=== PATIENT | male | born 1945 | race Caucasian/White ===

== ENCOUNTER → 2023-03-22 06:30 | Outpatient (REF) | payer MEDICARE, OTHER, SELFPAY ==
[2023-03-22 10:32] LABS: Blood Urea Nitrogen 28 mg/dl (9-20); Calcium 9.2 mg/dl (8.4-10.2); Carbon Dioxide 28 mmol/L (22-30); Chloride 103 mmol/L (98-107); Glucose 158 mg/dl (70-99); Potassium 4.1 mmol/L (3.5-5.1); Sodium 138 mmol/L (135-145); eGFR > 60.00
== END ==
LOC: HWLAB 06:30
PROVIDERS: ATTENDING PHYSICIAN Specialist; FAMILY PHYSICIAN Family Medicine
DX: I10 Essential (primary) hypertension (principal); E87.1 Hypo-osmolality and hyponatremia; N17.9 Acute kidney failure, unspecified
CPT/HCPCS: 36415; 80048

== ENCOUNTER → 2023-09-12 07:17 | Outpatient (REF) | payer MEDICARE, OTHER, SELFPAY ==
[2023-09-12 10:41] LABS: ALT (SGPT) 16 U/L (0-50); AST (SGOT) 26 U/L (17-59); Albumin 4.7 g/dl (3.5-5.0); Alkaline Phosphatase 69 U/L (38-126); Blood Urea Nitrogen 39 mg/dl (9-20); Calcium 10.1 mg/dl (8.4-10.2); Carbon Dioxide 28 mmol/L (22-30); Chloride 102 mmol/L (98-107); Glucose 139 mg/dl (70-99); HDL Cholesterol 51 mg/dl; LDL Cholesterol, Calculated 83 mg/dl; Potassium 4.8 mmol/L (3.5-5.1); Sodium 138 mmol/L (135-145); Total Bilirubin 0.6 mg/dl (0.2-1.3); Total Cholesterol 173 mg/dl (50-199); Total Protein 6.8 g/dl (6.3-8.2); Triglyceride 198 mg/dl (10-149); Very Low Density Lipoprotein 39 mg/dl (0-30); eGFR > 60.00
[2023-09-12 11:12] LABS: PSA, Total - Diagnostic < 0.06 ng/ml (0.0-4.0)
[2023-09-12 12:38] LABS: Glycohemoglobin (HgbA1c) 6.7 % (4.0-5.6)
== END ==
LOC: HWLAB 07:17
PROVIDERS: ATTENDING PHYSICIAN Family Medicine
DX: E11.9 Type 2 diabetes mellitus without complications (principal); E78.5 Hyperlipidemia, unspecified; C61 Malignant neoplasm of prostate
CPT/HCPCS: 36415; 80053; 80061; 83036; 84153

== ENCOUNTER → 2024-03-12 10:06 | Outpatient (REF) | payer MEDICARE, OTHER, SELFPAY ==
[2024-03-12 16:48] LABS: PSA, Total - Diagnostic < 0.06 ng/ml (0.0-4.0)
== END ==
LOC: HWLAB 10:06
PROVIDERS: ATTENDING PHYSICIAN Specialist; FAMILY PHYSICIAN Internal Medicine
DX: C61 Malignant neoplasm of prostate (principal)
CPT/HCPCS: 36415; 84153

== ENCOUNTER 2024-06-04 06:21 | Day surgery (SDC) | payer MEDICARE, OTHER, SELFPAY ==
[2024-06-04 11:47] LABS: Glucose - Point of Care 152 mg/dl (70-99)
== END 2024-06-04 13:18 | disposition home or self-care (01) ==
LOC: GI 06:21
PROVIDERS: ATTENDING PHYSICIAN Internal Medicine Gastroenterology
DX: Z12.11 Encounter for screening for malignant neoplasm of colon (principal); K57.30 Diverticulosis of large intestine without perforation or abscess without bleeding; K64.8 Other hemorrhoids; D12.2 Benign neoplasm of ascending colon; D12.3 Benign neoplasm of transverse colon; Z86.0100 Personal history of colon polyps, unspecified
CPT/HCPCS: 45385; 88305; 82962

== ENCOUNTER → 2024-09-30 07:43 | Outpatient (REF) | payer MEDICARE, OTHER, SELFPAY ==
[2024-09-30 10:03] LABS: Hematocrit 35.7 % (39.0-52.0); Hemoglobin 11.9 g/dL (13.0-18.0); Mean Corp Hgb Conc. 33.3 g/dL (33.0-37.0); Mean Corpuscular Volume 89.7 fL (80.0-94.0); Nucleated Red Blood Cells % 0 % (-); Platelet Count 198 10^3/uL (130-400); Red Cell Dist. Width 13.7 % (11.5-14.5)
[2024-09-30 10:22] LABS: Microalb - Urine Creatinine 189.000 mg/dl
[2024-09-30 10:24] LABS: Microalbumin, Random Urine 1.4 mg/dl (0.6-1.7)
[2024-09-30 10:48] LABS: PSA, Total - Diagnostic < 0.06 ng/ml (0.0-4.0); TSH 2.71 uIU/ml (0.47-4.68)
[2024-09-30 11:50] LABS: ALT (SGPT) 14 U/L (0-50); AST (SGOT) 21 U/L (17-59); Albumin 4.6 g/dl (3.5-5.0); Alkaline Phosphatase 58 U/L (38-126); Blood Urea Nitrogen 30 mg/dl (9-20); Calcium 9.5 mg/dl (8.4-10.2); Carbon Dioxide 26 mmol/L (22-30); Chloride 104 mmol/L (98-107); Glucose 134 mg/dl (70-99); HDL Cholesterol 48 mg/dl; LDL Cholesterol, Calculated 75 mg/dl; Potassium 4.0 mmol/L (3.5-5.1); Sodium 139 mmol/L (135-145); Total Protein 6.9 g/dl (6.3-8.2); Very Low Density Lipoprotein 44 mg/dl (0-30); eGFR > 60.00
[2024-09-30 12:12] LABS: Glycohemoglobin (HgbA1c) 7.0 % (4.0-5.6)
== END ==
LOC: HWLAB 07:43
PROVIDERS: ATTENDING PHYSICIAN Specialist; FAMILY PHYSICIAN Internal Medicine
DX: E11.9 Type 2 diabetes mellitus without complications (principal); C61 Malignant neoplasm of prostate; I10 Essential (primary) hypertension; E78.2 Mixed hyperlipidemia; J93.83 Other pneumothorax; Z76.89 Persons encountering health services in other specified circumstances
CPT/HCPCS: 36415; 80053; 80061; 82043; 82570; 83036; 84153; 84443; 85025

== ENCOUNTER 2024-12-17 13:12 | Emergency (ER) | payer MEDICARE, OTHER, SELFPAY ==
[2024-12-17 13:18] VITALS: BP 158/91
[2024-12-17 13:19] VITALS: BP 158/91
[2024-12-17 13:26] VITALS: BMI 27.0
[2024-12-17 13:35] LABS: Hematocrit 36.2 % (39.0-52.0); Hemoglobin 12.3 g/dL (13.0-18.0); Mean Corp Hgb Conc. 34.0 g/dL (33.0-37.0); Mean Corpuscular Volume 88.5 fL (80.0-94.0); Nucleated Red Blood Cells % 0 % (-); Platelet Count 227 10^3/uL (130-400); Red Cell Dist. Width 13.4 % (11.5-14.5)
[2024-12-17 13:48] LABS: ALT (SGPT) 21 U/L (0-50); AST (SGOT) 26 U/L (17-59); Albumin 4.8 g/dl (3.5-5.0); Alkaline Phosphatase 75 U/L (38-126); Blood Urea Nitrogen 29 mg/dl (9-20); Calcium 9.7 mg/dl (8.4-10.2); Carbon Dioxide 28 mmol/L (22-30); Chloride 102 mmol/L (98-107); Estimated Creatinine Clearance 45 ml/min; Glucose 198 mg/dl (70-99); Potassium 4.2 mmol/L (3.5-5.1); Sodium 137 mmol/L (135-145); Total Protein 7.3 g/dl (6.3-8.2); eGFR 55.53
[2024-12-17 14:00] LABS: Troponin I < 0.012 ng/ml
[2024-12-17 15:00] VITALS: BP 148/68
[2024-12-17 15:25] VITALS: BP 151/95
--- NOTE | 2024-12-17 15:54 | ED.GENMED ---
History of Present Illness
General
Chief Complaint: Dizziness
Time Seen by Provider: 12/17/24 13:28
History of Present Illness
History of Present Illness:
79-year-old male with history of hypertension, hyperlipidemia, and kha-btdzobp-dejshxuyd diabetes presents to the emergency department for evaluation of a bout of severe dizziness with resultant vomiting that occurred today. He has some amnesia to
the events and is possible that he may have fallen. The event occurred while he was working outdoors. Currently feels well with no complaints. Denies headache, vision changes, chest pain, shortness of breath, nausea, vomiting, or diarrhea.
Past History
Past History
ED Past Medical History: NIDDM
ED Past Surgical History: None
Social History
Tobacco: Non-smoker
Personal:
Living: with family
Review of Systems
Review of Systems
Allergies reviewed?: Yes
All Other Systems: ROS reviewed and negative except as documented in HPI and ROS
Phy Exam
Physical Exam
Physical Exam:
GEN: Well appearing, NAD, WDWN
HEENT: Oral mucosa moist, no scleral icterus, no nasal congestion
Cardiac: Regular rate and rhythm, no murmurs
Lung: No respiratory distress, no tachypnea
MSK: No gross deformity or injuries
Skin: Good color, no pallor or jaundice, no rashes
Neuro: AO x3; CN II-XII grossly intact. BUE strength 5/5 in all thacker, sensation intact and symmetric. BLE strength 5/5 in all thacker, sensation intact and symmetric
Psych: Calm, cooperative
Course
Orders/Labs/Results
Orders:
Orders
12/17/24 13:27
Electrocardiogram (*1) Urgent
Reason for Study: Chest Pain
EKG- Treatment ONCE
12/17/24 13:28
Complete Blood Count/With Diff Urgent
Comprehensive Metabolic Panel Urgent
Troponin I Urgent
12/17/24 13:41
CT Head W/o Iv Contrast Urgent
Comment:
Reason For Exam: dizzy/vomiting
Abnormal Lab Results
12/17/24
13:28
RBC 4.09 L 10^6/uL
(4.70-6.10)
Hgb 12.3 L g/dL
(13.0-18.0)
Hct 36.2 L %
(39.0-52.0)
MPV 10.6 H fL
(7.4-10.4)
Abs Immat Gran (auto) 0.1 H 10^3/uL
(0-0.05)
Absolute Neuts (auto) 7.8 H 10^3/uL
(1.4-6.5)
Absolute Lymphs (auto) 1.1 L 10^3/uL
(1.2-3.4)
Immature Gran % 1.2 H %
(0-0.5)
Neutrophils % 80.5 H %
(42.2-75.2)
Lymphocytes % 11.2 L %
(20.5-51.1)
BUN 29 H mg/dl
(9-20)
Glucose 198 H mg/dl
(70-99)
12/17/24 13:28
12/17/24 13:28
Vital Signs
Initial and Last Documented VS:
Initial Vital Signs
Pulse Resp BP Pulse Ox
83 18 158/91 100
12/17/24 13:18 12/17/24 13:18 12/17/24 13:18 12/17/24 13:18
Last Documented Vital Signs
Pulse Resp BP Pulse Ox
94 18 155/75 96
12/17/24 16:45 12/17/24 16:45 12/17/24 16:00 12/17/24 16:00
MDM/Problems Addressed
MDM/Problems Addressed:
This was either a syncopal event due to exertion/vasovagal versus a bout of vertigo. 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
Comment
Comment:
EKG independently interpreted by me shows a normal sinus rhythm at a rate of 82 with a first-degree AV block, single PVC identified, no ischemic changes
*Pulse Oximetry
SaO2: 95
Oxygen Mode of Delivery: Room air
Patient hypoxic: no
*Critical Care Note
Total Time (30-74mins, 75-104mins- exclusive of procedures): Not Applicable
ED Attending Note
-
Portions of this chart may have been created with voice recognition software.� Occasional wrong word or��sound alike� substitutions may have occurred due to the inherent limitations of voice recognition software.
Discharge Plan
Departure
Patient Disposition: Home (Routine Discharge)
Date of Disposition: 12/17/24
Time of Disposition: 16:32
Patient with high blood pressure during this ER visit?: No
Discharge Problem:
Syncope
Instructions: Syncope (fainting) (DC)
Prescriptions:
No Action
multivitamin Tablet
1 tab PO DAILY
triamterene-hydrochlorothiazid 37.5-25 mg Capsule
1 cap PO DAILY
losartan 100 mg Tablet
100 mg PO QPM
metformin 500 mg Tablet Extended Release 24 Hr
500 mg PO BID
rosuvastatin 5 mg Tablet
5 mg PO MOWEFR
Januvia 50 mg Tablet
50 mg PO QPM
Lupron Depot (6 Month) 45 mg Syringe Kit
45 mg IM [id number]
Referrals:
Cory Sanchez MD [Family Provider, Internal Medicine]
Activity Restrictions/Additional Instructions:
Begin taking baby aspirin once daily (81mg) for further stroke prevention
Interventions
Interventions:
*Risk Screen - Suicide Last Done: 12/17/24 13:18
*General Assessment Last Done: 12/17/24 13:18
*Neglect/Abuse Screening Last Done: 12/17/24 13:18
*ED COVID-19 Vaccine History Last Done: 12/17/24 15:25
*ED Influenza Vaccine History Last Done: 12/17/24 15:25
*Nursing Disposition Last Done: 12/17/24 17:25
ED- Neurological Assessment Last Done: 12/17/24 13:18
ED- Cardiac Assessment Last Done: 12/17/24 13:18
Discharge Date and Time
Discharge Date/Time: 12/17/24 17:25
Print Language: [place]
[2024-12-17 16:00] VITALS: BP 155/75
== END 2024-12-17 17:25 | disposition home or self-care (01) ==
LOC: EMR 13:12
PROVIDERS: EMERGENCY PHYSICIAN Emergency Medicine; FAMILY PHYSICIAN Internal Medicine
DX: R55 Syncope and collapse (principal); I44.0 Atrioventricular block, first degree; I49.3 Ventricular premature depolarization; E11.9 Type 2 diabetes mellitus without complications; I10 Essential (primary) hypertension; E78.5 Hyperlipidemia, unspecified; Z79.82 Long term (current) use of aspirin; Z79.84 Long term (current) use of oral hypoglycemic drugs; Z86.73 Personal history of transient ischemic attack (TIA), and cerebral infarction without residual deficits
CPT/HCPCS: 99284; 70450; 80053; 84484; 85025; 93005

== ENCOUNTER → 2024-12-22 08:08 | Outpatient (REF) | payer MEDICARE, OTHER, SELFPAY ==
[2024-12-22 11:21] LABS: Hematocrit 37.9 % (39.0-52.0); Hemoglobin 12.7 g/dL (13.0-18.0); Mean Corp Hgb Conc. 33.5 g/dL (33.0-37.0); Mean Corpuscular Volume 89.4 fL (80.0-94.0); Nucleated Red Blood Cells % 0 % (-); Platelet Count 234 10^3/uL (130-400); Red Cell Dist. Width 13.3 % (11.5-14.5); Reticulocyte Count 1.1 % (0.4-2.8)
[2024-12-22 11:33] LABS: Iron 83 ug/dl (49-181)
[2024-12-22 11:42] LABS: Total Iron Binding Capacity 340 ug/dl (261-462)
[2024-12-22 11:45] LABS: Microalb - Urine Creatinine 221.400 mg/dl
[2024-12-22 12:05] LABS: Ferritin 151.0 ng/ml (17.9-464.0)
[2024-12-22 12:11] LABS: Glycohemoglobin (HgbA1c) 7.0 % (4.0-5.9)
[2024-12-22 12:50] LABS: Microalbumin, Random Urine 1.4 mg/dl (0.6-1.7)
== END ==
LOC: HWLAB 08:08
PROVIDERS: ATTENDING PHYSICIAN Internal Medicine
DX: R40.20 Unspecified coma (principal); Z86.73 Personal history of transient ischemic attack (TIA), and cerebral infarction without residual deficits; R42 Dizziness and giddiness; E78.2 Mixed hyperlipidemia; E11.9 Type 2 diabetes mellitus without complications; I10 Essential (primary) hypertension; S16.1XXA Strain of muscle, fascia and tendon at neck level, initial encounter; D64.89 Other specified anemias
CPT/HCPCS: 36415; 82043; 82570; 82728; 83036; 83540; 83550; 85025; 85045

== ENCOUNTER → 2024-12-24 18:10 | Outpatient (REF) | payer MEDICARE, OTHER, SELFPAY | LOC: PAVMRI 18:10 | PROVIDERS: ATTENDING PHYSICIAN Internal Medicine | DX: R40.20 Unspecified coma (principal); Z86.73 Personal history of transient ischemic attack (TIA), and cerebral infarction without residual deficits; R42 Dizziness and giddiness; E78.2 Mixed hyperlipidemia; E11.9 Type 2 diabetes mellitus without complications; I10 Essential (primary) hypertension; S16.1XXA Strain of muscle, fascia and tendon at neck level, initial encounter | CPT/HCPCS: 70551 ==

== ENCOUNTER → 2024-12-26 10:58 | Outpatient (REF) | payer MEDICARE, OTHER, SELFPAY ==
--- NOTE | 2024-12-26 18:54 | EEG.RPT ---
Electroencephalogram Report
Recording
Date of EE12/26/24
Type of EEG: Routine
Length of EEG recordin minutes
Done with Video Recording: Yes
Patient Status: Outpatient
Recording Conditions: Awake and Drowsy
Hyperventilation Performed: No
Photic Stimulation Performed: Yes
Report
LESS THAN 1 HOUR EEG REPORT
LESS THAN 1 HOUR EEG INTERPRETATION:
Likely unremarkable EEG for age
CLINICAL CORRELATION:
Although normative values not been established for a person of this advanced age, the patient�s symmetry of the background suggests that this study was unremarkable.
A normal EEG does not rule out a diagnosis of epilepsy. If clinical suspicion for seizure persists, a prolonged recording may be warranted.
Clinical correlation is advised.
METHODS:
A 21 channel digitized electroencephalogram (EEG) was performed using the 10/20 international system of electrode placement and one-lead of ECG recorded. The [employer] quantitative review system was utilized.
ELECTROENCEPHALOGRAPHER IMPRESSION(S):
Quality of study
Good
Background
There was an unremarkable anterior-posterior voltage gradient of alpha frequency.
With eye opening the background activity changed to a low voltage mixture of frequencies.
There were no significant asymmetries of background activity noted.
Sleep
Drowsiness present
Photic Stimulation
No driving
ECG
Normal sinus rhythm
== END ==
LOC: EEG 10:58
PROVIDERS: ATTENDING PHYSICIAN Internal Medicine
DX: R40.20 Unspecified coma (principal); I10 Essential (primary) hypertension; Z86.73 Personal history of transient ischemic attack (TIA), and cerebral infarction without residual deficits; R42 Dizziness and giddiness; E78.2 Mixed hyperlipidemia; E11.9 Type 2 diabetes mellitus without complications; S16.1XXA Strain of muscle, fascia and tendon at neck level, initial encounter
CPT/HCPCS: 95816

== ENCOUNTER → 2024-12-27 11:04 | Outpatient (REF) | payer MEDICARE, OTHER, SELFPAY | LOC: RCS 11:04 | PROVIDERS: ATTENDING PHYSICIAN Internal Medicine | DX: R40.20 Unspecified coma (principal) | CPT/HCPCS: 93306 ==

== ENCOUNTER → 2025-01-07 10:25 | Outpatient (REF) | payer MEDICARE, OTHER, SELFPAY | LOC: DHVS 10:25 | PROVIDERS: ATTENDING PHYSICIAN Internal Medicine | DX: R40.20 Unspecified coma (principal); Z86.73 Personal history of transient ischemic attack (TIA), and cerebral infarction without residual deficits; I65.23 Occlusion and stenosis of bilateral carotid arteries | CPT/HCPCS: 93880 ==

== ENCOUNTER → 2025-01-21 08:10 | Outpatient (REF) | payer MEDICARE, OTHER, SELFPAY | LOC: HWRAD 08:10 | PROVIDERS: ATTENDING PHYSICIAN Neurological Surgery; FAMILY PHYSICIAN Internal Medicine | DX: S06.5X1A Traumatic subdural hemorrhage with loss of consciousness of 30 minutes or less, initial encounter (principal) | CPT/HCPCS: 70450 ==